=== PATIENT | female | born 1955 | race Caucasian/White ===

== ENCOUNTER 2020-04-01 14:54 | Outpatient (REF) | payer OTHER, SELFPAY | END 2020-04-01 14:55 | disposition home or self-care (01) | LOC: HO.LAB 14:54 | PROVIDERS: Visit Provider Internal Medicine | DX: Z20.828 Contact with and (suspected) exposure to other viral communicable diseases (principal) | CPT/HCPCS: C9803; U0003 ==

== ENCOUNTER 2025-01-26 14:22 | Outpatient (REF) | payer OTHER, SELFPAY ==
--- OUTSIDE RECORDS SUMMARY | 2025-01-26 13:00 | XMS_ITS | Encounter Summary ---
Author Organization [employer] Address [address] [facility] [address] [place] [address] Care Team Providers Care Impregnator And Drier Helper Name Role Phone Louise Mario NP Primary Care Provider [phone] Encounter Details Date Type Department Care Team (Late st Contact Info) Description 01/26/2025 1:00 PM EDT Office Visit [facility] [address] [place] [address] Type 2 diabetes mellitus with diabetic neuropathy, without long-term current use of insulin (HCC) (Primary Dx); History of stroke with current residual effects; Persistent asthma with acute exacerbation, unspecified asthma severity; Osteopenia, unspecified location Social History Tobacco Use Types Packs/Day Years Used Date Smoking Tobacco: Never Passive Smoke Exposure: Never Smokeless Tobacco: Never Tobacco Cessation:Counseling Given: Not Answered Depression Answer Date Recorded Patient Health Questionnaire-9 Score 4 01/26/2025 Patient Health Questionnaire-9 Score 4 01/26/2025 Last PHQ-9: Questionnaire Data Not on file 1 Depression Answer Date Recorded Patient Health Questionnaire-2 Score 2 01/26/2025 Comments Unknown Sex and Gender Information Value Date Recorded Sex Assigned at Female 02/23/2022 10:15 AM EDT Legal Sex Female 10:15 AM EDT Gender Identity Female 02/23/2022 10:15 AM EDT Sexual Orientation Straight 02/23/2022 10 :15 AM EDT documented as of this encounter Last Filed Vital Signs Vital Sign Reading Time Taken Comments Blood Pressure 164/82 01/26/2025 1:59 PM EDT Pulse 62 01/26/2025 1:16 PM EDT Temperature 36.9 C (98.4 F) 01/26/2025 1:16 PM EDT Respiratory Rate 14 01/26/2025 1:16 PM EDT Oxygen Saturation 99% 01/26/2025 1:16 PM EDT Inhaled Oxygen Concentration - - Weight 68.7 kg (151 lb 8 oz) 01/26/2025 1:16 PM EDT Height 151.5 cm (4' 11.65 ) 01/26/2025 1:16 PM E DT Body Mass Index 29.94 01/26/2025 1:16 PM EDT documented in this encounter Functional Status * Over the past 2 weeks, how often have you been bothered by any of the following problems? Question Answer Date of Assessment Author Patient Health Questionnaire -2 Score 2 01/26/2025 2:02 PM EDT Inna Vasquez MA * Little interest or pleasure in doing things Answer Date of Assessment Author Several days 01/26/2025 2:02 PM EDT Inna Khalil MA * Feeling down, depressed, or hopeless Answer Date of Assessment Author Several days 01/26/2025 2:02 PM EDT Inna Khalil MA * Trouble falling or staying asleep, or sleeping too much Answer Date of Assessment Author Several days 01/26/2025 2:02 PM EDT Inna Khalil MA * Feeling tired or having little energy Answer Date of Assessment Author Several days 01/26/2025 2:02 PM EDT Inna Khalil MA * Poor appetite or overeating Answer Date of Assessment Author Not at all 01/26/2025 2:02 PM EDT Inna Khalil MA * Feeling bad about yourself - or that you are a failure or have let yourself or your family down Answer Date of Assessment Author Not at all 01/26/2025 2:02 PM EDT Inna Khalil MA * Trouble concentrating on things, such as reading the newspaper or watching television Answer Date of Assessment Author Not at all 01/26/2025 2:02 PM EDT Inna Khalil MA * Moving or speaking so slowly that other people could have noticed? Or the opposite - being so fidgety or restless that you have been moving around a lot more than usual. Answer Date of Assessment Author Not at all 01/26/2025 2:02 PM EDT Inna Khalil MA * Thoughts that you would be better off or hurting yourself in some way Answer Date of Assessment Author Not at all 01/26/2025 2:02 PM EDT Inna Khalil MA * Patient Health Questionnaire-9 Score Answer Date of Assessment Author 4 01/26/2025 2:02 PM EDT Inna Khalil MA * How difficult have these problems made it for you to do your work, take care of things at home, or get along with other people? Answer Date of Assessment Author Not difficult at all 01/26/2025 2:02 PM EDT Inna Cooper MA * Over the last 2 weeks, how often have you been bothered by any of the following problems? Question Answer Date of Assessment Author Feeling nervous, anxious, or on edge 1 01/26/2025 2:01 PM EDT Inna Vasquez MA Not being able to stop or control worrying 1 01/26/2025 2:01 PM EDT Inna Vasquez MA Worrying too much about different things 1 01/26/2025 2:01 PM EDT Inna Vasquez MA Trouble relaxing 1 01/26/2025 2:01 PM EDT Inna Arndt MA Becoming easily annoyed or irritable 1 01/26/2025 2:01 PM EDT Inna Vasquez MA Feeling afraid as if somethi ng awful might happen 0 01/26/2025 2:01 PM EDT Inna Vasquez MA documented as of this encounter Miscellaneous Notes * Assessment & Plan Note - Louise Mario NP - 01/26/2025 1:00 PM EDTAssociated Problem(s): Type 2 diabetes mellitus with diabetic neuropathy, without long- term currentuse of insulin (HCC) * Assessment & Plan Note - Louise Mario NP - 01/26/2025 1:00 PM EDTAssociated Problem(s): Asthma documented in this encounter Plan of Treatment Upcoming Encounters Date Type Department Care Team (Late st Contact Info) Description 02/16/2025 9:45 AM EDT Office Visit [facility] [address] [place] [address] Scheduled Orders Name Type Priority Associated Diagnoses Orde r Schedule CBC auto differential Lab Routine Persistent asthma with acute exacerbation, unspecified asthma severity Expected: 01/26/2025 (Approximate), Expires: 01/26/2026 Comprehensive Metabolic Panel Lab Routine Type 2 diabetes mellitus with diabetic neuropathy, without long-term current use of insulin ([facility]) Expected: 01/26/2025 (Approximate), Expires: 01/26/2026 Hemoglobin A1c Lab Routine Type 2 diabetes mellitus with diabetic neuropathy, without long-term current use of insulin ([facility]) Expected: 01/26/2025 (Approximate), Expires: 01/26/2026 Vitamin D, 25-Hydroxy, Total, Immunoassay Lab Routine Osteopenia, unspecified location Expected: 01/26/2025 (Approximate), Expires: 01/26/2026 documented as of this encounter Visit Diagnoses Diagnosis Type 2 diabetes mellitus with diabetic neuropathy, without long-term current use of insulin ([facility])- Primary History of stroke with current residual effects Persistent asthma with acute exacerbation, unspecified asthma severity Osteopenia, unspecified location documented in this encounter Additional Health Concerns Assessment Noted Time PHQ-9 Depression Total Score: 4 01/27/20 2:02 PM EDT documented as of this encounter Care Teams Impregnator And Drier Helper Relationship Specialty Start Date End Date Louise Mario NP [address] [place] [address] PCP - General Nurse Practitioner 01/26/25 documented as of this encounter
--- OUTSIDE RECORDS SUMMARY | 2025-01-26 14:26 | XMS_ITS | Encounter Summary ---
Author Organization [employer] Address [address] [place] [address] 7 [place] [address] Care Team Providers Care Desulfurizer Operator Name Role Phone Louise Mario NP Primary Care Provider [phone] Encounter Details Date Type Department Care Team (Latest Contact Info) Description 01/26/2025 Travel Social History Tobacco Use Types Packs/Day Years Used Date Smoking Tobacco: Never Passive Smoke Exposure: Never Smokeless Tobacco: Never Depression Answer Date Recorded Patient Health Questionnaire-9 [...] AM EDT documented as of this encounter Functional Status * Over the [...] or control worrying 1 01/26/2025 2:01 PM EDInna Smith MA Worrying too much about different things 1 01/26/2025 2:01 PM EDT Inna Vasquez MA Trouble relaxing 1 01/26/2025 2:01 PM EDT Inna Arndt MA Becoming easily annoyed or irritable 1 01/26/2025 2:01 PM EDT Inna Vasquez MA Feeling afraid as if somethi ng awful might happen 0 01/26/2025 2:01 PM EDT Inna Vasquez MA documented as of this encounter Plan of Treatment Upcoming Encounters Date Type Department Care Team (Late st Contact Info) Description 02/16/2025 9:45 AM EDT Office Visit [facility] [address] [place] [address] documented as of this encounter Visit Diagnoses Not on filedocumented in this encounter Additional Health Concerns Assessment Noted Time PHQ-9 Depression Total Score: 4 01/27/20 25 2:02 PM EDT documented as of this encounter Care Teams Desulfurizer Operator Relationship Specialty Start Date End Date Louise Mario NP [address] [place] [address] PCP - General Nurse Practitioner 01/26/25 documented as of this encounter
--- OUTSIDE RECORDS SUMMARY | 2025-01-26 14:26 | XMS_ITS | Clinical Summary ---
Author Organization [employer] Address [address] [facility] [address] [place] [address] Care Team Providers Care Senior Communications Specialist Name Role Phone Louise Mario NP Primary Care Provider [phone] Active Allergy Reactions Criticality Noted Date Comments Latex 01/23/2025 Other 09/30/2020 Seasonal Allergies Pollen Extract 09/30/2020 Medications albuterol 108 (90 Base) MCG/ACT inhaler Inhale 2 puffs every 4 (four) hours if needed for wheezing or shortness of breath. 4 Active aspirin 81 MG chewable tablet Chew 81 mg Once per day. 3 Active atorvastatin (Lipitor) 40 MG tablet Take 1 tablet by mouth at bed time. Active chlorhexidine (Periogard) 0.12 % solution Place 15 mL into mouth between cheek and gum every 12 (twelve) hours. 1 Active cholecalciferol (Vitamin D-3) 50 MCG (2000 UT) capsule Take 2,000 Units by mouth Once per day. 3 Active citalopram (CeleXA) 10 MG tablet Take 15 mg by mouth Once per day. 2 Active Diclofenac Sodium 1 % gel Apply 1 g topically 4 times daily. 4 Active fluticasone (Flonase) 50 MCG/ACT nasal spray Administer 1 spray into each nostril 2 times daily. 5 Active FREESTYLE LITE test strip 1 each by Other route before breakfast. 5 Active ibuprofen 800 MG tablet Take 800 mg by mouth if needed in the morning and at bedtime for moderate pain. 4 Active lisinopril 20 MG tablet Take 20 mg by mouth Once per day. 4 Active montelukast (Singulair) 10 MG tablet Take 1 tablet by mouth at bed time. Active zolpidem (Ambien) 5 MG tablet Take 5 mg by mouth if needed at bedtime. 5 Active verapamil ER (Verelan) 360 MG 24 hr capsule Take 360 mg by mouth at bedtime. 4 Active LORazepam (Ativan) 1 MG tablet Take 1 mg by mouth 2 times daily. 2 Active loratadine (Claritin) 10 MG tablet Take 10 mg by mouth Once per day. 4 Active hydroCHLOROthia zide (HYDRODiuril) 25 MG tablet Take 25 mg by mouth Once per day. 6 Active fluticasone (Flovent) 110 MCG/ACT inhaler Inhale 2 puffs in the morning and at bedtime. 4 Active Active Problems Problem Noted Date Diagnosed Date Type 2 diabetes mellitus wit h diabetic neuropathy, without long-term current use of insulin 01/26/2025 Assessment & Plan (01/26/2025 2:05 PM EDT): Anxiety 03/14/2012 Asthma 03/14/2012 Assessment & Plan (01/26/2025 2:05 PM EDT): Depressive disorder 03/14/2012 Hyperlipidemia 03/14/2012 Hypertension 03/14/2012 Encounters Date Type Department Care Team Description 01/26/2025 1:00 PM EDT Office Visit [facility] [address] [place] [address] [phone] Type 2 diabetes mellitus with diabetic neuropathy, without long-term current use of insulin (HCC) (Primary Dx); History of stroke with current residual effects; Persistent asthma with acute exacerbation, unspecified asthma severity; Osteopenia, unspecified location 01/26/2025 Travel 01/25/2025 Telephone [facility] [address] [place], [place] [phone] Louise Mario NP Error (VOID this visit) 01/25/2025 Telephone [facility] [address] [place] [address] Louise Mario NP 01/15/2025 Patient Outreach [facility] [address] [place] [address] Mariely Keys NP Pre-visit Planning ([facility] unable to reach LVM ) from Last 3 Months Immunizations Immunization Administration Dates Next Due Hep B, adult 05/05/2005,08/26/2004,07/15/2004 Influenza Injectable Quadriv alant Preservative Free IIV4 MDCK 02/05/2021,03/10/2019 Influenza Quadrivalent Adjuvanted 01/31/2024 Influenza, High Dose Seasona l, Preservative Free 04/02/2023 Influenza, IIV3, injectable 03/07/2020, 5,12/22/2011 Influenza, seasonal, injecta ble, preservative free 03/07/2020,01/10/2015,12/22/2011 Influenza, trivalent, adjuvanted 04/02/2023 Pneumococcal Conjugate PCV 13 11/15/2014 Pneumococcal Conjugate PCV 20 04/13/2022 TD (adult), 2 Lf tetanus tox oid, preservative free, adsorbed 06/28/1996 Td (adult), unspecified 06/28/1996 Tdap 11/15/2014 Social History Tobacco Use Types Packs/Day Years [...] Orientation Straight 02/23/2022 10 :15 AM EDT Last Filed Vital Signs Vital Sign Reading [...] Mass Index 29.94 01/26/2025 1:16 PM EDT Plan of Treatment Upcoming Encounters Date Type Department Care Team (Late st Contact Info) Description 02/16/2025 9:45 AM EDT Office Visit [facility] [address] [place] [id number] Health Maintenance Due Date Last Done Comments CT Colonography 1957 Colonoscopy 1957 Colorectal Cancer Screening 1957 FIT DNA/Cologuard 1957 FIT 1957 FOBT 1957 Lipid Panel 1957 SDOH Screening 1957 Sigmoidoscopy 1957 Diabetes: Foot Exam 1967 Eye Exam 1967 Hepatitis C Screening 1975 Zoster Vaccines (1 of 2) 2007 RSV Patients and Patients Aged 60 years or older (1 - Risk 60-74 years 1-dose series) 2017 DTaP/Tdap/Td Vaccines (2 - Td or Tdap) 11/15/2024 11/15/2014, 06/28/1996, 06/28/1996 Diabetes: Hemoglobin A1C 12/07/2024 09/06/2024 COVID-19 Vaccine ( season) 2024 01/31/2024, 07/06/2022, 11/04/2021, Additional history exists Influenza Vaccine (#1) 2024 , 04/02/2023, 04/02/2023, Additional history exists Diabetes: Urine Protein Screening 04/11/2025 04/11/2024 Alcohol/Substance Use Screening 01/26/2026 01/26/2025 Depression Screening 01/26/2026 01/26/2025, 01/27/20 Tobacco Screening 01/26/2026 01/26/2025 Mammogram 09/21/2026 09/21/2024, 09/21/2024 Hepatitis B Vaccines Completed 05/05/2005, 08/26/2004, 07/15/2004 Pneumococcal Vaccine: 50+ Years Completed 04/13/2022, 11/15/2014 HIB Vaccines Aged Out No longer eligi ble based on patient's age to complete this topic HPV Vaccines Aged Out No longer eligi ble based on patient's age to complete this topic Hepatitis A Vaccines Aged Out No long er eligible based on patient's age to complete this topic IPV Vaccines Aged Out No longer eligi ble based on patient's age to complete this topic Meningococcal B Vaccine Aged Out No l onger eligible based on patient's age to complete this topic Meningococcal Vaccine Aged Out No luda ivelisse eligible based on patient's age to complete this topic RSV under 20 months Aged Out No longe r eligible based on patient's age to complete this topic Rotavirus Vaccines Aged Out No longer eligible based on patient's age to complete this topic Insurance [facility] [employer] (O D-SNP) [place] [id number] Care Teams Senior Communications Specialist Relationship Specialty Start Date End Date Louise Mario NP [address] [place] [address] [phone] PCP - General Nurse Practitioner 01/26/25
--- OUTSIDE RECORDS SUMMARY | 2025-01-26 14:26 | XMS_ITS | Encounter Summary ---
Author Organization [employer] Address [address] [place] [address] [address] [place] [address] Care Team Providers Care Timber Surveyor Name Role Phone Unavailable Primary Care Provider Unavailabl e Encounter Details Date Type Department Care Team (Late st Contact Info) Description 01/25/2025 Telephone [facility] [address] [place], [place] [phone] Louise Mario, JOHNATHAN [address] [place] [address] Social History Tobacco Use Types Packs/Day Years Used Date Smoking Tobacco: Never Assessed Depression Answer Date Recorded Patient Health Questionnaire-9 [...] AM EDT documented as of this encounter Miscellaneous Notes * Telephone Encounter - Inna Sales MA - 01/25/2025 1:18 PM EDT Chart Prep Labs: done from 09/06/24 Images: done from 09/21/24 Referrals: not applicable Vaccines due: Covid, Flu, Tdap, RSV, and Zoster Screenings: colonoscopy and lipid panel, hep c. Overdue care gaps: SBIRT, SDOH, PHQ-9, TIA-7, Oral health screening, and Tobacco documented in this encounter Plan of Treatment Upcoming Encounters Date Type Department Care Team (Late st Contact Info) Description 02/16/2025 9:45 AM EDT Office Visit [facility] [address] [place] [address] documented as of this encounter Visit Diagnoses Not on filedocumented in this encounter
--- OUTSIDE RECORDS SUMMARY | 2025-01-26 14:26 | XMS_ITS | Clinical Summary ---
Author Organization [address] Address [address] [place] [address] Phone Care Team Providers Care Badger Distiller Operator Name Role Phone Arlene Cardenas MD Primary Care Provider [phone] Allergies Active Allergy Reactions Criticality Noted Date Comments Other 09/30/2020 Seasonal Allergies Medications albuterol HFA (PROAIR HFA ; PROVENTIL HFA ; VENTOLIN HFA) 90 mcg/actuation inhaler Inhale 2 Puffs into the lungs every 4 hours as needed for Cough (for RESCUE ONLY - wheezing/shortn ess of breath). 4 Active fluticasone HFA (FLOVENT HFA) 110 mcg/actuation inhaler 2 puffs. 4 Active zolpidem (AMBIEN) 10 mg tablet 3 Active LANCETS MISC 1 Each by Does not apply route every morning (before breakfast). 3 Active cholecalciferol (VITAMIN D-3) 50 mcg (2,000 unit) capsule Take 1 capsule (2,000 Units total) by mouth 1 (one) time each day. 3 Active citalopram (CeleXA) 10 mg tablet Take 1.5 tablets (15 mg total) by mouth 1 (one) time each day. 2 Active prazosin (MINIPRESS) 2 mg capsule Take 1 capsule (2 mg total) by mouth 1 (one) time each day. 2 Active LORazepam (ATIVAN) 1 mg tablet Take 1 tablet (1 mg total) by mouth 2 (two) times a day. 2 Active ramelteon (ROZEREM) 8 mg tablet 1 Active aspirin 81 mg EC tablet Take 1 tablet (81 mg total) by mouth 1 (one) time each day. 90 tablet 1 4 Active blood sugar diagnostic (FreeStyle Lite Strips) test strip 1 each by Other route 1 (one) time each day before breakfast. 100 each 5 Active hydroCHLOROthia zide (HYDRODIURIL) 25 mg tablet TAKE 1 TABLET BY MOUTH DAILY. 28 tablet 1 5 Active fluticasone propionate (FLONASE) 50 mcg/actuation nasal spray ADMINISTER 1 SPRAY INTO EACH NOSTRIL 2 (TWO) TIMES A DAY. SHAKE GENTLY. BEFORE FIRST USE, PRIME PUMP. AFTER USE, CLEAN TIP AND REPLACE CAP. 16 g 1 5 Active loratadine (CLARITIN) 10 mg tablet TAKE 1 TABLET BY MOUTH DAILY. 28 tablet 1 5 Active atorvastatin (LIPITOR) 40 mg tablet TAKE 1 TABLET BY MOUTH DAILY. 28 tablet 4 5 Active montelukast (SINGULAIR) 10 mg tablet TAKE 1 TABLET BY MOUTH AT BEDTIME. 28 tablet 4 5 Active lisinopriL (PRINIVIL,ZESTR IL) 20 mg tablet Take 1 tablet (20 mg total) by mouth 1 (one) time each day. at bedtime. 90 tablet 1 5 Active diclofenac (VOLTAREN) 1 % topical gel Apply 1 g topically 4 (four) times a day. 200 g 2 5 Active verapamil ER (VERELAN) 360 mg 24 hr capsule TAKE 1 CAPSULE BY MOUTH AT BEDTIME. 28 capsule 4 5 Active Active Problems Problem Noted Date Diagnosed Date Obesity (BMI 30.0-34.9) 09/07/2024 HTN (hypertension) 02/22/2024 Hyperlipidemia 02/22/2024 Major depression 02/22/2024 Anxiety 02/22/2024 Overview (02/22/2024): F/u [facility] Asthma 02/22/2024 Gait instability 10/06/2023 Primary osteoarthritis of both knees 10/06/2023 Urinary incontinence 08/11/2023 Osteopenia 08/11/2023 Vitamin D insufficiency 04/02/2023 Peripheral neuropathy 12/31/2020 DM (diabetes mellitus), type 2 with neurological complications ([facility] V24, [facility] V28) 10/06/2020 Hemiparesis affecting right side as late effect of cerebrovascular accident ([facility] V24, [facility] V28) 08/21/2017 Cocaine use 08/21/2017 Microscopic hematuria 07/13/2014 Immunizations Immunization Administration Dates Next Due Hepatitis B (Ztqszpz-Q-Pwkqa , Recombivax HB-Adult) 19yo and older 05/05/2005,08/26/2004,07/15/2004 Influenza Quadravalent, 0.5m l (Fluad) 65yo and older 01/31/2024 Influenza Quadravalent, MDCK , 0.5ml, preservative free (Flucelvax) 6mo and older 02/05/2021,03/10/2019 Influenza trivalent, 0.5mL ( Fluad) 65yo and older 04/02/2023 Influenza trivalent, 0.5mL ( Fluzone High-dose) 65yo and older 04/02/2023 Influenza trivalent, 0.5mL, preservative free (Fluarix; FluLaval; Fluzone) ages 6mo and older (Afluria) 3 years and older 03/07/2020,12/22/2011 Influenza trivalent, with pr eservative (Fluzone; Afluria) 6mo and older 03/07/2020,01/10/2015 Pfizer (ages 12 & older) JUAN JOSÉ S-CoV-2 COVID-19, mRNA, LNP-S, vonda-sucrose, preservative free 11/04/2021 Pfizer SARS-CoV-2 COVID-19, mRNA, LNP-S, preservative free 11/04/2021 Pneumococcal conjugate 13 va lent (Prevnar 13, PCV13) 2mo and older 11/15/2014 Pneumococcal conjugate 20 va lent (Prevnar 20, PCV 20) 2mo and older 04/13/2022 Td Tetanus diptheria (Tdvax) 7yo and older 06/28 Tdap Tetanus diptheria acell ular pertussis (Boostrix; Adacel) 7yo and older 11/15/2014 Surgical History Surgery Date Site/Laterality Comments OTHER SURGICAL HISTORY SPHINCTEROPLASTY ANAL MUSCLE TRANSPLANT CARPAL TUNNEL RELEASE Right NECK SURGERY HISTORICAL NECK SURGERY; COMMENT: ?unclear what was done? Medical History Medical History Date Comments HTN (hypertension) History of anemia Anxiety Major depression Asthma Hemiparesis of right dominant side due to cerebr al infarction 08/21/2017 Cocaine use 08/21/2017 DM (diabetes mellitus), type 2 with neurological complications ([facility] V24, [facility] V28) 10/06/2020 Peripheral neuropathy 12/31/2020 Osteopenia 08/11/2023 Urinary incontinence 08/11/2023 Hyperlipidemia 02/22/2024 Family History Medical History Relation Name Comments Heart attack Father T2DM, HTN, HLD Heart attack Maternal Grandfather Heart attack Maternal Grandmother Brain cancer Mother diabetes, pacem rosario, CVA Hypertension Sister x 9 HLD, T2DM, drug abuse Relation Name Status Comments Brother x 2 Alive Father Maternal Grandfather Maternal Grandmother Mother Paternal Grandfather Paternal Grandmother Sister x 9 Alive Social History Tobacco Use Types Packs/Day Years Used Date Smoking Tobacco: Never Smokeless Tobacco: Never Tobacco Cessation:Counseling Given: Not Answered Alcohol Use Standard Drinks/Week Comments Not Currently 1 (1 standard drink = 0.6 oz pur e alcohol) Comments No Sex and Gender Information Value Date Recorded Sex Assigned at Not on file Legal Sex Female 4:53 AM EST Gender Identity Not on file Sexual Orientation Not on file Obstetrics History Para Term AB IAB SAB Ectopic Multiple Livin g Live Births 2 2 2 2 Date Outcome GA Total Labor Labor/2nd/3rd Weight Sex Type Anes PTL Kierra A1 A5 Name Clin Term Term Last Filed Vital Signs Vital Sign Reading Time Taken Comments Blood Pressure 130/68 09/06/2024 1:15 PM EDT Pulse 66 09/06/2024 1:15 PM EDT Temperature 36.8 C (98.3 F) 09/06/2024 1:15 PM EDT Respiratory Rate 16 09/06/2024 1:15 PM EDT Oxygen Saturation 97% 09/06/2024 1:15 PM EDT Inhaled Oxygen Concentration - - Weight 69.2 kg (152 lb 9.6 oz) 09/06/2024 1:15 P M EDT Height 149.9 cm (4' 11 ) 09/06/2024 1:15 PM EDT Body Mass Index 30.82 09/06/2024 1:15 PM EDT Plan of Treatment Upcoming Encounters Date Type Department Care Team (Late st Contact Info) Description 04/30/2025 1:10 PM EST Appointment Radiology Department [address] [phone] Health Maintenance Due Date Last Done Comments Diabetes: Annual Retina Eye Exam 1965 Zoster Vaccines (1 of 2) 2007 RSV Immunization Adult Patients (1 - Risk 60-74 years 1-dose series) 2017 Social Influencers of Health Screening 04/04/2022 Depression Screening 04/26/2024 12/17/2023 Diabetes: Annual Foot Exam 08/10/2024 08/11/2023 DTaP,Tdap,and Td Vaccines (3 - Td or Tdap) 11/15/2024 11/15/2014, 06/28/1996 Falls Risk Assessment 12/16/2024 12/17/2023 Medicare Annual Wellness Visit 12/16/2024 12/17/2023 COVID-19 Vaccine ( season) 2024 01/31/2024, 07/06/2022, 11/04/2021, Additional history exists Influenza Vaccine (#1) 2024 , 04/02/2023, 04/02/2023, Additional history exists Diabetes: Blood Sugar Control Test (HGBA1C) 03/09/2025 09/06/2024, 04/11/2024, 01/13/2024, Additional history exists Diabetes: Annual Urine Albumin-Creatinine Ratio (uACR) 04/11/2025 04/11/2024, 04/02/2023 Diabetes: Annual GFR (Glomerular Filtration Rate) 04/11/2025 04/11/2024, 01/13/2024, 01/13/2024 Hypertension/CHF/CAD Annual BMP Blood Test 04/11/2025 04/11/2024, 01/13/2024, 01/13/2024 Colorectal Cancer Screening: FIT-DNA (Cologuard) 10/13/2025 10/13/2022 Breast Cancer Screening 09/21/2026 09/22/19 25, 03/12/2023, 02/10/2022, Additional history exists Cholesterol Screening (Lipid Panel) 01/12/2029 01/13/2024, 01/13/2024 Osteoporosis Screening (Bone Density Screening) 02/20/2034 02/21/2024, 02/21/2024 Hepatitis B Vaccines Completed 05/05/2005, 08/26/2004, 07/15/2004 Hepatitis C Screening Completed 01/05/2017 Pneumococcal Vaccine: 50+ Years Completed 04/13/2022, 11/15/2014 [...] on patient's age to complete this topic MMR Vaccines Aged Out No longer eligi ble based on patient's age to complete this topic Meningococcal ACWY Vaccine Aged Out N o longer eligible based on patient's age to complete this topic Meningococcal B Vaccine Aged Out No l onger eligible based on patient's age to complete this topic RSV Immunization Patients Under 20 months Aged Out No longer eligible based on patient's age to complete this topic Varicella Vaccines Aged Out No longer eligible based on patient's age to complete this topic Procedures Procedure Name Priority Date/Time Associated Diagnosis Comments MG MAMMO DIGITAL SCREENING W DASH BILAT Routine 09/21/2024 3:46 PM EDT Encounter for screening mammogram for breast cancer HEMOGLOBIN A1C Routine 09/06/2024 1:43 PM EDT DM (diabetes mellitus), type 2 with neurological complications ([facility]/HCC V24, CMS/HCC V28) MICROALBUMIN CREATININE URINE RATIO Routine 04/11/2024 11:47 AM EST DM (diabetes mellitus), type 2 with neurological complications (CMS/HCC V24, CMS/HCC V28) COMPREHENSIVE METABOLIC PANEL Routine 04/11/2024 11:46 AM EST Primary hypertension DM (diabetes mellitus), type 2 with neurological complications (CMS/HCC V24, CMS/HCC V28) DXA BONE DENSITY STUDY 1+ SITS AXIAL SKEL Routine 02/21/2024 2:54 PM EDT Other specified disorders of bone density and structure, unspecified site LIPID PANEL Routine 01/13/2024 DEPRESSION SCREENING Routine 12/17/2023 FALLS RISK ASSESSMENT Routine 12/17/2023 DIABETES FOOT EXAM Routine 08/11/2023 HEPATITIS C SCREENING Routine 01/05/2017 from Last 3 Months or Most Recently Relevant to Health Maintenance Results * MG Mammo Digital Screening w Dash bilat (09/21/2024 3:46 PM EDT) Anatomical Region Laterality Modality Breast Bilateral Mammography 09/22/2024 9:22 AM EDT Impressions 09/22/2024 9:33 AM EDT No mammographic evidence of malignancy. BI-RADS CATEGORY: 1 - NEGATIVE RECOMMENDATION: Screening bilateral mammogram is recommended in 1 year. Mammo Location: [facility], [address] [place] [address], [facility], . -------- FINAL REPORT -------- Dictated By: Iveth Tse Dictated Date: 09/22/2024 09:22 ET Assigned Physician: Iveth Tse Reviewed and Electronically Signed By: Iveth Tse Signed Date: 09/22/2024 09:33 ET Workstation ID: [id number] Transcribed By: Self Edit Transcribed Date: 09/22/2024 09:22 ET Narrative 09/22/2024 9:33 AM EDT Bilateral screening mammogram. CLINICAL: 69 years old, Female, routine annual exam. COMPARISON: Prior studies, latest from 02/10/2022. TECHNIQUE: Bilateral MLO and CC views were obtained digitally with 2-D C views and 3-D mammogram (digital breast tomosynthesis). Computer-aided detection was utilized in evaluation of this exam (CAD). FINDINGS: There is no evidence of suspicious mass or architectural distortion. No worrisome calcifications are evident. There has been no significant change from prior exam(s). BREAST DENSITY: B - There are scattered areas of fibroglandular density. Procedure Note Iveth Tse MD - 09/22/2024 Bilateral screening mammogram. CLINICAL: 69 years old, Female, routine annual exam. COMPARISON: Prior studies, latest from 02/10/2022. TECHNIQUE: Bilateral MLO and CC views were obtained digitally with 2-D Cviews and 3-D mammogram (digital breast tomosynthesis). Computer-aideddetection was utilized in evaluation of this exam (CAD). FINDINGS: There is no evidence of suspicious mass or architectural distortion. Noworrisome calcifications are evident. There has been no significantchange from prior exam(s). BREAST DENSITY: B - There are scattered areas of fibroglandular density. IMPRESSION: No mammographic evidence of malignancy. BI-RADS CATEGORY: 1 - NEGATIVE RECOMMENDATION: Screening bilateral mammogram is recommended in 1 year. Mammo Location: [facility], [address] [place] [address], [id number], . -------- FINAL REPORT -------- Dictated By: Iveth Tse Dictated Date: 09/22/2024 09:22 ET Assigned Physician: Iveth Tse Reviewed and Electronically Signed By: Iveth Tse Signed Date: 09/22/2024 09:33 ET Workstation ID: [id number] Transcribed By: Self Edit Transcribed Date: 09/22/2024 09:22 ET us Arlene Cardenas MD IM BI PROCEDURES Final Result * (ABNORMAL) Hemoglobin A1c (09/06/2024 1:43 PM EDT) Hemoglobin A1C 6.5(H) <6.5 % LAB CHEMISTRY METHOD 09/06/2024 8:32 PM EDT [facility] Mean Bld Glu Estim. 140 mg/dL LAB CHEMISTRY METHOD 09/06/2024 8:32 PM EDT [facility] Blood Venous blood specimen / Unknown Venipuncture / Unknown 09/06/2024 1:43 PM EDT 09/06/2024 1:43 PM EDT us Arlene Cardenas MD LAB BLOOD ORDERABLES Final Resul t Performing Organization Address [facility]/ZIP Co de Phone Number [facility] [address] [place] [address], [place] [phone] * Microalbumin creatinine urine ratio (04/11/2024 11:47 AM EST) Creatinine, Urine 92.0 mg/dL LAB CHEMISTRY METHOD 04/11/2024 5:50 PM EST [facility] Microalb, Ur 9.0 0.0 - 29.0 mg/L LAB CHEMISTRY METHOD 04/11/2024 5:50 PM EST [facility] Microalb/Creat Ratio 10 <30 mg/g creat LAB CHEMISTRY METHOD 04/11/2024 5:50 PM EST [facility] Urine Urine specimen from urethra / Unknown Non-blood Collection / Unknown 04/11/2024 11:47 AM EST 04/11/2024 11:47 AM EST us Tiera VARGAS LAB URINE ORDERABLES Final Re sult Performing Organization Address [facility] Co de Phone Number [facility] [address] [place] [address], [place] [phone] * (ABNORMAL) Comprehensive metabolic panel (04/11/2024 11:46 AM EST) Sodium 137 133 - 145 mmol/L LAB CHEMISTRY METHOD 04/11/2024 5:49 PM EST [facility] Potassium 3.9 3.5 - 5.5 mmol/L LAB CHEMISTRY METHOD 04/11/2024 5:49 PM EST [facility] Chloride 106 96 - 110 mmol/L LAB CHEMISTRY METHOD 04/11/2024 5:49 PM [facility] CO2 28 21 - 32 mmol/L LAB CHEMISTRY METHOD 04/11/2024 5:49 PM [facility] Anion Gap 3 3 - 11 LAB CHEMISTRY METHOD 04/11/2024 5:49 PM [facility] Glucose 122(H) 70 - 100 mg/dL LAB CHEMISTRY METHOD 04/11/2024 5:49 PM [facility] BUN 16 5 - 25 mg/dL LAB CHEMISTRY METHOD 04/11/2024 5:49 PM [facility] Creatinine 0.76 0.50 - 1.10 mg/dL LAB CHEMISTRY METHOD 04/11/2024 5:49 PM [facility] eGFR 86 >=60 mL/min/1. 73m2 LAB CHEMISTRY METHOD 04/11/2024 5:49 PM [facility] Comment:Calculation based on the Chronic Kidney Disease Epidemiology Collaboration (CKD-EPI) equation refit without adjustment for race. BUN/Creatinine Ratio 21.1 LAB CHEMISTRY METHOD 04/11/2024 5:49 PM [facility] Calcium 9.5 8.5 - 10.5 mg/dL LAB CHEMISTRY METHOD 04/11/2024 5:49 PM [facility] AST (SGOT) 25 10 - 42 unit/L LAB CHEMISTRY METHOD 04/11/2024 5:49 PM [facility] ALT (SGPT) 41 10 - 60 unit/L LAB CHEMISTRY METHOD 04/11/2024 5:49 PM [facility] Alkaline Phosphatase 52 42 - 121 unit/L LAB CHEMISTRY METHOD 04/11/2024 5:49 PM [facility] Total Protein 7.8 6.0 - 8.0 g/dL LAB CHEMISTRY METHOD 04/11/2024 5:49 PM [facility] Albumin 4.4 3.2 - 5.0 g/dL LAB CHEMISTRY METHOD 04/11/2024 5:49 PM EST [facility] Total Bilirubin 0.5 0.0 - 1.4 mg/dL LAB CHEMISTRY METHOD 04/11/2024 5:49 PM EST [facility] Blood Venous blood specimen / Unknown Venipuncture / Unknown 04/11/2024 11:46 AM EST 04/11/2024 11:46 AM EST us Tiera VARGAS LAB BLOOD ORDERABLES Final Re sult [facility]) [facility] [address] [place] [address], * DXA BONE DENSITY STUDY 1+ SITS AXIAL SKEL (02/21/2024 2:54 PM EDT) Anatomical Region Laterality Modality Bone Densitometr y 08/11/2023 3:44 PM EDT Narrative 02/22/2024 7:48 PM EDT Clinical history: disorder of bone or cartilage Scans of the lumbar spine and hips were performed on a [employer]2020 fan beam bone densitometer. Bone mineral density measurements and associated T and Z scores respectively are as follows: Lumbar Spine: L1-L4 BMD: 0.947 g/cm2 T-Score: -0.9 Z-Score: 1.0 Left Proximal Femur: Neck BMD: 0.667 g/cm2 T-Score: -1.6 Z-Score: 0 Total BMD: 0.955 g/cm2 T-Score: 0.1 Z-Score: 1.4 Compared with standards for the young adult, lowest measured bone density places the patient in the W.H.O. osteopenic range. FRAX 10 year probability of major osteoporotic fracture: 15% FRAX 10 year probability of hip fracture: 2.1% Population: [place] () IMPRESSION: IMPRESSION: Osteopenia. The NOF guidelines recommend that FDA approved medical therapies be considered in postmenopausal women and men age >50 years with a: i. Hip or vertebral (clinical or morphometric) fracture ii. T score of < -2.5 at the spine or hip iii. 10 year fracture probability by FRAX of >3% for hip fracture, or >20% for major osteoporotic fracture PLEASE NOTE: W.H.O. classification is based on lowest measured density at the spine, femoral neck, or total hip.This classification has prognostic significance when applied to post menopausal women and older men. 1) The World Health Organization defines low BMD as follows: T-score Normal at or > -1 Osteopenia < -1 and > -2.5 Osteoporosis at or < -2.5 without fractures Established osteoporosis < -2.5 with fractures Procedure Note Patrick Alvarado MD - 02/26/2024 Clinical history: disorder of bone or cartilage Scans of the lumbar spine and hips were performed on a [employer] beam bone densitometer. Bone mineral density measurements and associated T and Z scoresrespectively are as follows: Lumbar Spine: L1-L4 BMD: 0.947 g/cm2 T-Score: -0.9 Z-Score: 1.0 Left Proximal Femur: Neck BMD: 0.667 g/cm2 T-Score: -1.6 Z-Score: 0 Total BMD: 0.955 g/cm2 T-Score: 0.1 Z-Score: 1.4 Compared with standards for the young adult, lowest measured bone densityplaces the patient in the W.H.O. osteopenic range. FRAX 10 year probability of major osteoporotic fracture: 15% FRAX 10 year probability of hip fracture: 2.1% Population: [place] () IMPRESSION: IMPRESSION: Osteopenia. The NOF guidelines recommend that FDA approved medical therapies beconsidered in postmenopausal women and men age >50 years with a: i. Hip or vertebral (clinical or morphometric) fracture ii. T score of < -2.5 at the spine or hip iii. 10 year fracture probability by FRAX of >3% for hip fracture, or >20%for major osteoporotic fracture PLEASE NOTE: W.H.O. classification is based on lowest measured density at the spine,femoral neck, or total hip.This classification has prognostic significance when applied to postmenopausal women and older men. 1) The World Health Organization defines low BMD as follows: T-score Normal at or > -1 Osteopenia < -1 and > -2.5 Osteoporosis at or < -2.5 withoutfractures Established osteoporosis < -2.5 with fractures Result [facility] Arlene Cardenas MD IMG DXA PROCEDURES Final Result * Lipid panel (01/13/2024) [facility] LDL/HDL Ratio 3 0 - 4 Triglycerides 85 0 - 150 mg/dL Cholesterol 154 0 - 200 mg/dL HDL 62 >=40 mg/dL LDL Cholesterol 75 0 - 100 mg/dL Blood Venous blood specimen / Unknown Result [facility] Provider LAB BLOOD ORDERABLES Yulisa l Result * Falls Risk Assessment (12/17/2023) [facility] Falls Risk Assessment abstracted Result [facility] Provider HEALTH MAINTENANCE Final Result * Depression Screening (12/17/2023) [facility] Depression Screening abstracted Result [facility] Provider HEALTH MAINTENANCE Final Result * Diabetes Foot Exam (08/11/2023) [facility] Diabetes: Annual Foot Exam abstracted Result [facility] Provider HEALTH MAINTENANCE Final Result * Hepatitis C Screening (01/05/2017) [facility] Hepatitis C Screening abstracted Result [facility] Provider HEALTH MAINTENANCE Final Result from Last 3 Months or Most Recently Relevant to Health Maintenance Insurance [facility] MEDICARE Member Subscriber Plan / Payer (Ef fective 2022-Present) Name:Zuly Biswas Relation to Subscriber:Self Name:Zuly Biswas Payer ID:[id number] Group ID:[id number] Type:Not on file Address: [place] [address] [address] [address] Care Teams Badger Distiller Operator Relationship Specialty Start Date End Date Arlene Cardenas MD [address] [place] [address] PCP - General Internal Medicine 09/30/20
--- OUTSIDE RECORDS SUMMARY | 2025-01-26 14:26 | XMS_ITS ---
Author Name [facility] Organization Unknown Care Team Organization Name Specialty Phone Email Start Date End Da te [facility] Arlene Cardenas Primary Care 03/03/2022 4
--- OUTSIDE RECORDS SUMMARY | 2025-01-26 14:26 | XMS_ITS | Encounter Summary ---
Author Organization [employer] [facility] Address [address] [place] [address] [address] [place] [address] Care Team Providers Care Garment Finisher Name Role Phone Unavailable Primary Care Provider Unavailabl e Reason for Visit * Reason Onset Date Comments Error (VOID this visit) 01/25/2025 Encounter Details Date Type Department Care Team (Late st Contact Info) Description 01/25/2025 Telephone [facility] [address] [place] [address] [phone] Louise Mario NP [address] [place], [place] [phone] Error (VOID this visit) Social History Tobacco Use Types Packs/Day Years [...] AM EDT documented as of this encounter Plan of Treatment Upcoming Encounters Date Type Department Care Team (Late st Contact Info) Description 02/16/2025 9:45 AM EDT Office Visit [facility] [address] [place] [address] [phone] documented as of this encounter Visit Diagnoses Not on filedocumented in this encounter
--- OUTSIDE RECORDS SUMMARY | 2025-01-26 14:26 | XMS_ITS | Encounter Summary ---
Author Organization [employer] [facility] Address [address] [place] [address] 7 [address] Floor [place] [phone] Care Team Providers Care Technical System Analyst Name Role Phone Louise Mario STORE CLERK Primary Care Provider [phone] Encounter Details Date Type Department Care Team (Latest Contact Info) Description 09/02/2020 Abstract [facility] CONVERSIONS Dental, Provider, DDS Social History Tobacco Use Types Packs/Day Years Used Date Smoking Tobacco: Never Assessed Comments Unknown Sex and Gender Information Value [...] Description 02/16/2025 9:45 AM EDT Office Visit [facility] [address] [place] [address] documented as of this encounter Visit Diagnoses Not on filedocumented in this encounter Care Teams Technical System Analyst Relationship Specialty Start Date End Date Louise Mario NP [address] [place] [address] PCP - General Nurse Practitioner 01/26/25 documented as of this encounter
[2025-01-26 16:15] LABS: MANUAL DIFF FLAG NO
[2025-01-26 16:27] LABS: Hematocrit 34.5 % (37.0-47.0); Hemoglobin 12.0 g/dl (12.0-16.0); Imm Gran Abs Auto 0.05 X10*3/uL (0.00-0.03); Imm Gran Pct Auto 0.5 % (0.0-0.4); Lymphocytes Absolute Auto 2.3 X10*3/uL (1.2-4.9); Mean Corpuscular HGB Conc 34.8 g/dl (31.0-35.0); Mean Corpuscular Hemoglobin 31.7 pg (27.0-33.0); Mean Corpuscular Volume 91.0 fL (80.0-98.0); NRBC Abs Auto 0.000 X10*3/uL (0.0-0.012); NRBC Pct Auto 0.0 /100WBC (0.0-0.2); Platelet Count 306 X10*3/uL (160-400); Red Blood Count 3.79 X10*6/uL (4.20-5.50); White Blood Count 9.4 X10*3/uL (4.8-10.8)
[2025-01-26 16:45] LABS: Alanine Aminotransferase 57 U/L (0-31); Albumin Level 4.7 g/dL (3.5-5.0); Alkaline Phosphatase 51 U/L (39-117); Anion Gap 12 (12-20); Aspartate Amino Transferase 40 U/L (5-31); Blood Urea Nitrogen 16 mg/dL (9-16); Calcium 9.6 mg/dL (8.4-10.2); Carbon Dioxide 28 mmol/L (22-29); Chloride 103 mmol/L (96-108); Estimated Glomerular Filt Rate > 60; Potassium 3.2 mmol/L (3.3-5.1); Sodium 140 mmol/L (135-145); Total Protein 7.4 g/dL (6.5-8.0)
== END 2025-01-26 14:23 | disposition home or self-care (01) ==
LOC: HO.HHCL 14:22
PROVIDERS: PCP Nurse Practitioner Family; Visit Provider Nurse Practitioner Family
DX: J45.901 Unspecified asthma with (acute) exacerbation (principal); E11.40 Type 2 diabetes mellitus with diabetic neuropathy, unspecified; M85.80 Other specified disorders of bone density and structure, unspecified site
CPT/HCPCS: 36415; 80053; 82306; 83036; 85025